=== PATIENT | female | born 1980 | race Two or more races ===

== ENCOUNTER 2017-03-04 17:21 | Emergency (ER) | payer SELFPAY ==
[~2017-03-04] VITALS: Ht 157.5 cm; Wt 83.9 kg
[2017-03-04] MEDS ORDERED: IV NORMAL SALINE 1000ML BAG 1,000 ML IV SCH (17:49)
[2017-03-04] MEDS ORDERED: HYDROmorphone 2 MG/ML VIAL IV/SQ PRN (18:00)
[2017-03-04] MEDS ORDERED: 0.9 % SODIUM CHLORIDE 10 ML DISP.SYRIN. IV PRN (18:00)
--- NOTE | 2017-03-04 18:01 | PHYS DOC ---
Past Medical History Past Medical History: No Pertinent History Past Surgical History: Appendectomy Additional Past Surgical Histo: bladder surgery Alcohol Use: None Drug Use: None Adult General Chief Complaint Chief Complaint: NAUSEA/VOMITING/DIARRHA [facility] 's patient is a pleasant otherwise healthy 36-year-old female who presents with sudden onset of nausea vomiting diarrhea and crampy pain in her upper and lower extremities bilaterally. About 5 PM yesterday pain cramping began diffusely spread over her flanks bilaterally without paresthesias she has had carpopedal spasms and cramps in her calves. She describes a mild frontal headache not worst of life and sudden onset with no focal neurologic deficits. She denies any trauma, fevers, chills or other symptoms. Patient denies any sick contacts, travel outside the country, antibiotics use or prior symptoms of the same nature. She denies any use of IV drugs. There is no family medical problems controlling to the symptoms. She also denies the consumption of raw foods, and in poultry or reptiles, or travel outside the country. 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 Review of Systems Review of Systems Constitutional: Subjective claims fevers and chills with nothing measured. Eyes: Denies change in visual acuity, redness, or eye pain [] HENT: Denies nasal congestion or sore throat [] Respiratory: Denies cough or shortness of breath [] Cardiovascular: No additional information not addressed in HPI [] GI she is abdominal pain with nausea and vomiting and loose stool [] : Denies dysuria or hematuria [] Musculoskeletal: Denies flank pain lower and upper extremity pain.over the joints. Integument: Denies rash or skin lesions [] Neurologic: As a frontal headache not worse of life that sudden onset with generalized weakness and cramping all her extremities. Endocrine: Denies polyuria or polydipsia [] Current Medications Current Medications Current Medications Medications (Trade) Dose Ordered Sig/Zita Start Time Stop Time Status Last Admin Dose Admin Hydromorphone HCl (Dilaudid) 1 mg PRN Q15MIN PRN 03/04/17 18:00 03/05/17 17:59 03/04/17 18:31 1 MG Lorazepam (Ativan) 1 mg 1X ONCE 03/04/17 18:00 03/04/17 18:01 DC 03/04/17 18:30 1 MG Sodium Chloride (Normal Saline Flush) 10 ml QSHIFT PRN 03/04/17 18:00 Allergies Allergies Allergies Coded Allergies Type Severity Reaction Last Updated Verified No Known Drug Allergies 03/04/17 No Physical Exam Physical Exam Constitutional: Well developed, well nourished obviously uncomfortable mildly tachypnea, mildly anxious. HENT: Normocephalic, atraumatic, bilateral external ears normal, oropharynx moist, no oral exudates, nose normal. [] Eyes: PERRLA, EOMI, conjunctiva normal, no discharge. [] Neck: Normal range of motion, no tenderness, supple, no stridor. [] Cardiovascular:Heart rate regular rhythm, no murmur [] Lungs & Thorax: Bilateral breath sounds clear to auscultation [] Abdomen: Bowel sounds hyperactive with diffuse tenderness. Patient with no guarding rebound or organomegaly. Skin: Warm, dry, no erythema, no rash. [] Back: No tenderness, no CVA tenderness. [] Extremities: No tenderness, no cyanosis, no clubbing, ROM intact, no edema. [] Neurologic: Alert and oriented X 3, normal motor function, normal sensory function, no focal deficits noted. Patient able to move all chimneys without issue normal strength electric distribution checker bilaterally mild carpopedal spasm noted Psychologic: Patient anxious breathing at 22 times minute. Judgment is normal Current Patient Data Vital Signs Vital Signs Date Time Temp Pulse Resp B/P (MAP) Pulse Ox O2 Delivery O2 Flow Rate FiO2 03/04/17 18:52 118 25 112/66 (81) 93 Room Air 03/04/17 17:50 98.6 98.6 Lab Values Laboratory Tests Test 03/04/17 17:28 03/04/17 18:00 03/04/17 18:20 POC Urine HCG, Qualitative Hcg negative (Negative) White Blood Count 14.0 x10^3/uL (4.0-11.0) H Red Blood Count 4.69 x10^6/uL (3.50-5.40) Hemoglobin 13.1 g/dL (12.0-15.5) Hematocrit 39.1 % (36.0-47.0) Mean Corpuscular Volume 83 fL (79-100) Mean Corpuscular Hemoglobin 28 pg (25-35) Mean Corpuscular Hemoglobin Concent 34 g/dL (31-37) Red Cell Distribution Width 13.4 % (11.5-14.5) Platelet Count 285 x10^3/uL (140-400) Neutrophils (%) (Auto) 84 % (31-73) H Lymphocytes (%) (Auto) 8 % (24-48) L Monocytes (%) (Auto) 8 % (0-9) Eosinophils (%) (Auto) 0 % (0-3) Basophils (%) (Auto) 0 % (0-3) Neutrophils # (Auto) 11.7 x10^3uL (1.8-7.7) H Lymphocytes # (Auto) 1.2 x10^3/uL (1.0-4.8) Monocytes # (Auto) 1.1 x10^3/uL (0.0-1.1) Eosinophils # (Auto) 0.0 x10^3/uL (0.0-0.7) Basophils # (Auto) 0.0 x10^3/uL (0.0-0.2) Sodium Level 137 mmol/L (136-145) Potassium Level 4.3 mmol/L (3.5-5.1) Chloride Level 101 mmol/L (98-107) Carbon Dioxide Level 29 mmol/L (21-32) Anion Gap 7 (6-14) Blood Urea Nitrogen 14 mg/dL (7-20) Creatinine 0.9 mg/dL (0.6-1.0) Estimated GFR (Cockcroft-Gault) 70.5 BUN/Creatinine Ratio 16 (6-20) Glucose Level 102 mg/dL (70-99) H Calcium Level 9.3 mg/dL (8.5-10.1) Ionized Calcium 1.17 mmol/L (1.13-1.32) Magnesium Level 1.9 mg/dL (1.8-2.4) Total Bilirubin 0.6 mg/dL (0.2-1.0) Aspartate Amino Transferase (AST) 23 U/L (15-37) Alanine Aminotransferase (ALT) 24 U/L (14-59) Alkaline Phosphatase 111 U/L (46-116) Creatine Kinase 125 U/L (26-192) Creatine Kinase MB (Mass) < 0.5 ng/mL (0.0-3.6) Creatine Kinase MB Relative Index 0.4 % (0-4) Troponin I Quantitative < 0.017 ng/mL (0.000-0.055) Total Protein 8.4 g/dL (6.4-8.2) H Albumin 3.4 g/dL (3.4-5.0) Albumin/Globulin Ratio 0.7 (1.0-1.7) L Lipase 84 U/L (73-393) Urine Collection Type Unknown Urine Color Yellow Urine Clarity Clear Urine pH 7.0 Urine Specific [place] 1.025 Urine Protein Negative mg/dL (NEG-TRACE) Urine Glucose (UA) Negative mg/dL (NEG) Urine Ketones (Stick) Negative mg/dL (NEG) Urine Blood Moderate (NEG) Urine Nitrite Negative (NEG) Urine Bilirubin Negative (NEG) Urine Urobilinogen Dipstick 0.2 mg/dL (0.2 mg/dL) Urine Leukocyte Esterase Small (NEG) Urine RBC 1-2 /HPF (0-2) Urine WBC Occ /HPF (0-4) Urine Squamous Epithelial Cells Mod /LPF Urine Bacteria Few /HPF (0-FEW) Laboratory Tests 03/04/17 18:00 Laboratory Tests 03/04/17 18:00 EKG EKG [] Radiology/Procedures Radiology/Procedures [] Course & Med Decision Making Course & Med Decision Making Pertinent Labs and Imaging studies reviewed. (See chart for details) She is a pleasant 36-year-old otherwise healthy female who came in with acute onset of nausea vomiting diarrhea with cramping in her hands feet and legs and size for body with paresthesias she is very anxious and nervous upon arrival. Her eyes calcium level is normal with counts are normal, her left lites are normal, ability exam on repeated evaluations and 1915 and 8:00 her improved. Patient is resting comfortably no longer exhibiting any symptoms. Differential diagnosis for nausea and vomiting with paresthesias includes bacterial and viral infections small bowel obstruction anxiety, hyperinflation syndrome, hypo- calcium, hyponatremia hypernatremia hypocalcemia. Impression: N.V.D, crampy ab pain, anxiety Disposition: Discharge home with supportive medications [] Dragon Disclaimer Dragon Disclaimer This electronic medical record was generated, in whole or in part, using a voice recognition dictation system. Departure Departure Impression: Primary Impression: Abdominal pain Additional Impressions: Paresthesia and pain of both upper extremities Paresthesia of both lower extremities Anxiety Nausea & vomiting Disposition: 01 HOME, SELF-CARE Condition: GOOD Patient Instructions: Abdominal Pain, Anxiety and Panic Attacks, Nausea and Vomiting, Paresthesia Additional Instructions: Please Return for new or increasing symptoms or have any questions or concerns. Scripts Lorazepam (ATIVAN) 1 Mg Tablet 1 MG PO TID for 5 Days, #15 TAB Prov: BRYANT ODELL MD 03/04/17 Ondansetron (ZOFRAN ODT) 4 Mg Tab.rapdis 4 MG PO BID Y for NAUSEA/VOMITING for 7 Days, #14 TAB Prov: BRYANT ODELL MD 03/04/17 Problem Qualifiers BRYANT ODELL MD March 04, 2017 18:01
[2017-03-04 18:22] LABS: BASO % 0 % (0-3); EOS % 0 % (0-3); HEMATOCRIT 39.1 % (36.0-47.0); HEMOGLOBIN 13.1 g/dL (12.0-15.5); LYMPH # 1.2 x10^3/uL (1.0-4.8); LYMPH % 8 % (24-48); MEAN CORPUSCULAR HEMOGLOBIN 28 pg (25-35); MEAN CORPUSCULAR HGB CONC 34 g/dL (31-37); MEAN CORPUSCULAR VOLUME 83 fL (79-100); MONO % 8 % (0-9); NEUT % 84 % (31-73); PLATELET COUNT 285 x10^3/uL (140-400); RED BLOOD COUNT 4.69 x10^6/uL (3.50-5.40); RED CELL DISTRIBUTION WIDTH 13.4 % (11.5-14.5)
[2017-03-04 18:40] LABS: CALCIUM 9.3 mg/dL (8.5-10.1); CREATININE 0.9 mg/dL (0.6-1.0); GFR 70.5; POTASSIUM 4.3 mmol/L (3.5-5.1)
[2017-03-04 18:46] LABS: ALBUMIN 3.4 g/dL (3.4-5.0); ALBUMIN/GLOBULIN RATIO 0.7 (1.0-1.7); MAGNESIUM 1.9 mg/dL (1.8-2.4); TOTAL BILIRUBIN 0.6 mg/dL (0.2-1.0); TOTAL PROTEIN 8.4 g/dL (6.4-8.2)
[2017-03-04 18:54] LABS: CREATINE KINASE 125 U/L (26-192)
[2017-03-04 19:00] LABS: CKMB MASS < 0.5 ng/mL (0.0-3.6)
[2017-03-04 19:06] LABS: BILIRUBIN,URINE NEGATIVE (NEG); GLUCOSE,URINE NEGATIVE (NEG); NITRITE,URINE NEGATIVE (NEG); PROTEIN,URINE NEGATIVE (NEG-TRACE); UROBILINOGEN,URINE 0.2 mg/dL (0.2 mg/dL)
[2017-03-04 19:34] LABS: BACTERIA,URINE FEW /HPF (0-FEW); SQUAMOUS EPITHELIAL CELL,UR MOD /LPF; WBC,URINE OCC /HPF (0-4)
[2017-03-04 20:04] LABS: OBC FLU VALID
[2017-03-04] MEDS ORDERED: ONDA4TAB10 PO (20:10)
[2017-03-04] MEDS ORDERED: LORA-434 PO (20:10)
[2017-03-04 20:30] VITALS: BP 121/76
== END 2017-03-04 20:29 | disposition home or self-care (01) ==
LOC: ER 18:25
DX: R10.84 Generalized abdominal pain (principal); R20.9 Unspecified disturbances of skin sensation; M79.602 Pain in left arm; M79.601 Pain in right arm; F41.9 Anxiety disorder, unspecified; R11.2 Nausea with vomiting, unspecified; R19.7 Diarrhea, unspecified; R51 Headache; Z90.49 Acquired absence of other specified parts of digestive tract; Z98.890 Other specified postprocedural states
CPT/HCPCS: 36415; 80053; 81001; 81025; 82310; 82553; 83690; 83735; 84484; 85027; 87086; 87804; 96361; 96374; 96375; 99284; J1170; J2060; J7030

== ENCOUNTER 2017-03-05 16:40 | Emergency (ER) | payer SELFPAY ==
[~2017-03-05] VITALS: Ht 157.5 cm; Wt 83.9 kg
[~2017-03-05 16:40] MED LIST: LORA-434 PO; ONDA4TAB10 PO
--- NOTE | 2017-03-05 17:07 | PHYS DOC ---
Past Medical History Past Medical History: No Pertinent History Past Surgical History: Appendectomy Additional Past Surgical Histo: bladder surgery Alcohol Use: None Drug Use: None Adult General Chief Complaint Chief Complaint: FEVER HPI HPI Patient is a 36 year old female who presents with family for sore throat that has developed over night. She states her nausea and paresthesia has improved since evaluation yesterday She continues to feel poorly with body aches and chills, and now with headache also. Her headache is bilateral, gradual in onset , mild. She is mostly concerned about her sore throat. She denies measured fever. She denies voice changes, difficulty swallowing, difficulty breathing, tongue swelling. Review of Systems Review of Systems Constitutional: Denies measured fever [] Eyes: Denies change in visual acuity, redness, or eye pain [] HENT: Denies nasal congestion [] Respiratory: Denies cough or shortness of breath [] Cardiovascular: No additional information not addressed in HPI [] GI: Denies abdominal pain, nausea, vomiting, bloody stools or diarrhea [] : Denies dysuria or hematuria [] Musculoskeletal: Denies back pain or joint pain [] Integument: Denies rash or skin lesions [] Neurologic: Denies focal weakness or sensory changes [] Endocrine: Denies polyuria or polydipsia [] Current Medications Current Medications Current Medications Medications (Trade) Dose Ordered Sig/Zita Start Time Stop Time Status Last Admin Dose Admin Dexamethasone (Decadron) 10 mg 1X STAT 03/05/17 17:37 03/05/17 17:40 DC 03/05/17 17:47 10 MG Ibuprofen (Motrin) 400 mg 1X ONCE 03/05/17 17:15 03/05/17 17:16 DC 03/05/17 17:13 400 MG Multi-Ingredient Mouthwash/Gargle (Gi Cocktail Single Dose) 15 ml 1X ONCE 03/05/17 17:15 03/05/17 17:16 DC 03/05/17 17:13 15 ML Penicillin G Benzathine (Bicillin L-A) 1,200,000 unit 1X ONCE 03/05/17 17:45 03/05/17 17:46 DC 03/05/17 17:47 1,200,000 UNIT Allergies Allergies Allergies Coded Allergies Type Severity Reaction Last Updated Verified No Known Drug Allergies 03/04/17 No Physical Exam Physical Exam Constitutional: Well developed, well nourished, no acute distress, non-toxic appearance. [] HENT: Normocephalic, atraumatic, bilateral external ears normal, oropharynx moist, has bilateral white exudates, nose normal, midline uvula, normal tongue. [] Eyes: PERRLA, EOMI, conjunctiva normal, no discharge. [] Neck: Normal range of motion, no tenderness, supple, no stridor. [] Cardiovascular:Heart rate regular rhythm [] Lungs & Thorax: Bilateral breath sounds clear to auscultation [] Abdomen: Bowel sounds normal, soft, no tenderness. [] Skin: Warm, dry, no erythema, no rash. [] Back: Normal range of motion. [] Extremities: No tenderness, ROM intact, no edema. [] Neurologic: Alert and oriented X 3, normal motor function, normal sensory function, no focal deficits noted. [] Psychologic: Affect normal, judgement normal, mood normal. [] Current Patient Data Vital Signs Vital Signs Date Time Temp Pulse Resp B/P (MAP) Pulse Ox O2 Delivery O2 Flow Rate FiO2 03/05/17 16:56 98.5 113 15 142/62 (88) 99 Room Air 98.5 Course & Med Decision Making Course & Med Decision Making Pertinent Labs and Imaging studies reviewed. (See chart for details) Rapid strep is positive. She was treated with penicillin and Decadron. Supportive care discussed. Return precautions given. She understands and agrees with plan. Dragon Disclaimer Dragon Disclaimer This electronic medical record was generated, in whole or in part, using a voice recognition dictation system. Departure Departure Impression: Primary Impression: Strep throat Disposition: 01 HOME, SELF-CARE Condition: STABLE Referrals: NO PCP (PCP) Patient Instructions: Strep Throat, [id number] Additional Instructions: You were treated for strep throat. Take Tylenol or ibuprofen as needed for pain or fever. Follow-up with your primary care doctor within one week. Return for any concerns. Willow GOMEZ MD March 05, 2017 17:07
[2017-03-05] MEDS ORDERED: LIDO:MAALOX:DONNATAL 1:1:1 15 ML SINGLE DOSE SWSW ONE (17:15)
[2017-03-05] MEDS ORDERED: IBUPROFEN 400 MG TABLET. PO ONE (17:15)
[2017-03-05] MEDS ORDERED: DEXAMETHASONE 4 MG TABLET PO STA (17:37)
[2017-03-05] MEDS ORDERED: PENICILLIN G BENZATHINE LA 1,200,000 UNIT/2 ML DISP.SYRIN. IM ONE (17:45)
[2017-03-05 18:32] VITALS: BP 116/77
[2017-03-06 07:53] LABS: NEGATIVE OBC STREP NEG; POSITIVE OBC STREP POS
== END 2017-03-05 18:33 | disposition home or self-care (01) ==
LOC: ER 16:40
DX: J02.0 Streptococcal pharyngitis (principal)
CPT/HCPCS: 87880; 96372; 99284; J0561; J8540